=== PATIENT | female | born 1940 | race Two or more races ===

== ENCOUNTER → 2024-05-01 | Outpatient (CLI) | payer OTHER ==
[2024-05-01 09:34] LABS: Urine Bacteria None Seen /hpf (None Seen)
[2024-05-01 10:34] LABS: Urine Blood Negative /uL (Negative); Urine Clarity Clear (Clear); Urine Color Light-Yellow (Yellow); Urine Protein, UAD Negative (Negative); Urine Specific Gravity 1.011 (1.001-1.035); Urine Urobilinogen Normal (Negative); Urine WBC 1 /hpf (0 - 5); Urine pH 7.5 (5.0-9.0)
[2024-05-01 10:45] LABS: Alanine Aminotransferase 22 U/L (7-40); Alkaline Phosphatase 103 U/L (46-116); Anion Gap 6 (5-15); BUN/Creatinine Ratio 14.3 (10.0-20.0); Blood Urea Nitrogen 9 mg/dL (9-23); Calcium 10.2 mg/dL (8.7-10.4); Carbon Dioxide 27 mmol/L (20-30); Chloride 107 mmol/L (98-107); Glucose 103 mg/dL (74-106); Potassium 3.9 mmol/L (3.5-5.1); Sodium 140 mmol/L (136-145)
[2024-05-01 10:47] LABS: Albumin 4.2 g/dL (3.2-4.8); Aspartate Aminotransferase 20 U/L (13-40); Bilirubin, Total 1.6 mg/dL (0.2-1.0); Total Protein 6.9 g/dL (5.7-8.2)
== END | disposition home or self-care (01) ==
LOC: LAB 09:17
PROVIDERS: ATTEND Internal Medicine
DX: I12.9 Hypertensive chronic kidney disease with stage 1 through stage 4 chronic kidney disease, or unspecified chronic kidney disease (principal); N18.2 Chronic kidney disease, stage 2 (mild); E11.59 Type 2 diabetes mellitus with other circulatory complications; E11.22 Type 2 diabetes mellitus with diabetic chronic kidney disease; R82.90 Unspecified abnormal findings in urine; E78.2 Mixed hyperlipidemia
CPT/HCPCS: 36415; 80053; 81001; 86803

== ENCOUNTER 2024-06-25 14:36 | Emergency (ER) | payer OTHER, MEDICARE ==
[~2024-06-25] VITALS: Ht 167.6 cm; Wt 90.0 kg
[2024-06-25 18:26] VITALS: BP 148/68; PULSE 85; RESP 18; TEMP 98.2; O2SAT 95
== END 2024-06-25 18:22 | disposition home or self-care (01) ==
LOC: ER 14:36
DX: S46.912A Strain of unspecified muscle, fascia and tendon at shoulder and upper arm level, left arm, initial encounter (principal); I82.402 Acute embolism and thrombosis of unspecified deep veins of left lower extremity; Z79.82 Long term (current) use of aspirin; W04.XXXA Fall while being carried or supported by other persons, initial encounter; Y93.89 Activity, other specified; Y92.89 Other specified places as the place of occurrence of the external cause; Y99.8 Other external cause status
CPT/HCPCS: 93971

== ENCOUNTER 2024-06-28 11:21 | Inpatient (IN) | payer MEDICARE, OTHER ==
[~2024-06-28] VITALS: Ht 167.6 cm; Wt 89.1 kg
[2024-06-28 13:14] LABS: Basophils # (auto) 0.1 10 ^3/uL (0-0.2); Basophils % (auto) 0.9 % (0.0-2.0); Eosinophils # (auto) 0.3 10 ^3/uL (0-0.8); Eosinophils % (auto) 3.2 % (0.0-7.0); Hematocrit 42.5 % (36.0-46.0); Hemoglobin 14.8 g/dL (12.2-16.2); Lymphocytes # (auto) 1.5 10 ^3/uL (0.4-5.4); Lymphocytes % (auto) 18.4 % (10.0-50.0); Mean Corpuscular Hemoglobin 31.6 pg (28.0-32.0); Mean Corpuscular Hgb Conc. 34.8 g/dL (32.0-36.0); Mean Corpuscular Volume 90.9 fL (80.0-100.0); Monocytes # (auto) 0.6 10 ^3/uL (0-1.3); Monocytes % (auto) 7.7 % (0.0-12.0); Neutrophils # (auto) 5.8 10 ^3/uL (1.6-8.6); Neutrophils % (auto) 69.8 % (37.0-80.0); Platelet Count (auto) 245 10^3/uL (140-450); Red Blood Cells 4.68 10^6/uL (4.0-5.20); White Blood Cell 8.3 10^3/uL (4.4-10.8)
[2024-06-28 13:18] LABS: Chloride 107 mmol/L (98-107); Sodium 139 mmol/L (136-145)
[2024-06-28 13:19] LABS: Anion Gap 9 (5-15); Calcium 9.9 mg/dL (8.7-10.4); Carbon Dioxide 23 mmol/L (20-31)
[2024-06-28 13:24] LABS: BUN/Creatinine Ratio 9.5 (10.0-20.0); Blood Urea Nitrogen 6 mg/dL (9-23); Glucose 121 mg/dL (74-106)
[2024-06-28] MEDS: IOHEXOL 300 MG/ML 100ML BOTTLE IJ ONE (13:58)
[2024-06-28] MEDS: SODIUM CHLORIDE 0.9% 1,000 ML IV ONE (16:59)
[2024-06-28] MEDS: ONDANSETRON HCL 4 MG/2 ML VIAL IV ONE (17:00)
[2024-06-28] MEDS: MORPHINE SULFATE 4 MG/ML SYR/VIAL IV ONE (17:03)
[2024-06-28 17:15] VITALS: PULSE 75; RESP 14; O2SAT 97
[2024-06-28 18:52] LABS: Urine Bacteria FEW /hpf (None Seen); Urine Blood Negative /uL (Negative); Urine Clarity Clear (Clear); Urine Color Light-Yellow (Yellow); Urine Protein, UAD Negative (Negative); Urine Specific Gravity 1.049 (1.001-1.035); Urine Urobilinogen Normal (Negative); Urine WBC 50 /hpf (0 - 5)
[2024-06-28 19:25] VITALS: PULSE 79; RESP 13; O2SAT 95
[2024-06-28] MEDS ORDERED: MORPHINE SULFATE INJ 2 MG/ml SYRG IV PRN ×2 (21:45→22:30)
[2024-06-28] MEDS ORDERED: ONDANSETRON HCL 4 MG/2 ML VIAL IV PRN (21:45)
[2024-06-28] MEDS ORDERED: hydrALAZINE HCL 20 MG/ML VL IV PRN (21:45)
[2024-06-28] MEDS ORDERED: ACETAMINOPHEN 325 MG TAB PO PRN (21:45)
[2024-06-28] MEDS: cefTRIAXone 1GM/50ML D5W 50 ML IV ONE (22:20)
[2024-06-28] MEDS: ASPirin 81 mg TAB PO ONE (22:21)
[2024-06-28] MEDS: ATORVASTATIN 20 MG TAB PO SCH (22:21)
[2024-06-28] MEDS: SODIUM CHLORIDE 0.9% 1,000 ML IV SCH (22:21)
[2024-06-28] MEDS ORDERED: NITROGLYCERIN 0.4 MG SL TAB SL PRN (22:30)
[2024-06-28] MEDS ORDERED: VERA240C2 PO (22:58)
[2024-06-28] MEDS ORDERED: METO-158 PO (22:59)
[2024-06-29] VITALS (7 sets, daily range): BP systolic 115–143; BP diastolic 55–87; PULSE 65–73; RESP 17–18; TEMP 97.6–98.8; O2SAT 94–98
[2024-06-29] MEDS: HYDROcodone-ACET 5/325MG TAB PO PRN (01:30)
[2024-06-29] MEDS ORDERED: ATOR20TA50 PO (02:32)
[2024-06-29] MEDS ORDERED: CHOL20007 PO (02:34)
[2024-06-29 07:52] LABS: Basophils # (auto) 0.1 10 ^3/uL (0-0.2); Basophils % (auto) 0.9 % (0.0-2.0); Eosinophils # (auto) 0.4 10 ^3/uL (0-0.8); Eosinophils % (auto) 5.3 % (0.0-7.0); Hematocrit 41.7 % (36.0-46.0); Hemoglobin 14.3 g/dL (12.2-16.2); Lymphocytes # (auto) 2.1 10 ^3/uL (0.4-5.4); Lymphocytes % (auto) 29.4 % (10.0-50.0); Mean Corpuscular Hemoglobin 31.4 pg (28.0-32.0); Mean Corpuscular Hgb Conc. 34.4 g/dL (32.0-36.0); Mean Corpuscular Volume 91.4 fL (80.0-100.0); Monocytes # (auto) 0.7 10 ^3/uL (0-1.3); Monocytes % (auto) 9.6 % (0.0-12.0); Neutrophils # (auto) 3.9 10 ^3/uL (1.6-8.6); Neutrophils % (auto) 54.8 % (37.0-80.0); Nucleated Red Blood Cells % 0.2 %; Platelet Count (auto) 213 10^3/uL (140-450); Red Blood Cells 4.56 10^6/uL (4.0-5.20); Red Cell Distribution Width 13.2 % (11.8-14.3)
[2024-06-29 08:06] LABS: Alanine Aminotransferase 22 U/L (7-40); Albumin 4.1 g/dL (3.2-4.8); Alkaline Phosphatase 122 U/L (46-116); Aspartate Aminotransferase 23 U/L (13-40); BUN/Creatinine Ratio 8.9 (10.0-20.0); Bilirubin, Total 1.5 mg/dL (0.2-1.0); Blood Urea Nitrogen 5 mg/dL (9-23); Calcium 9.6 mg/dL (8.7-10.4); Glucose 98 mg/dL (74-106); Potassium 3.8 mmol/L (3.5-5.1); Sodium 141 mmol/L (136-145); Total Protein 6.6 g/dL (5.7-8.2)
[2024-06-29 08:11] LABS: Chloride 107 mmol/L (98-107)
[2024-06-29] MEDS: ENOXAPARIN SOD 40 MG/0.4 ML SYRINGE SC SCH (09:31)
[2024-06-29] MEDS: cefTRIAXone 1GM/50ML D5W 50 ML IV SCH (09:32)
[2024-06-29 12:21] LABS: Anion Gap 8 (5-15); Carbon Dioxide 26 mmol/L (20-31)
[2024-06-29] MEDS ORDERED: hydrALAZINE HCL 20 MG/ML VL IV PRN (13:00)
[2024-06-29] MEDS: VERAPAMIL HCL 120 mg ER tab PO ONE (16:05)
[2024-06-29] MEDS: METOPROLOL TARTRATE 50 MG TAB PO SCH (21:30)
[2024-06-30] VITALS (7 sets, daily range): BP systolic 108–133; BP diastolic 47–71; PULSE 61–82; RESP 16–18; TEMP 98–98.9; O2SAT 91–100
[2024-06-30] MEDS: ENOXAPARIN SOD 40 MG/0.4 ML SYRINGE SC SCH (10:22)
[2024-06-30] MEDS: VERAPAMIL HCL 120 mg ER tab PO SCH (10:31)
[2024-07-01] VITALS (8 sets, daily range): BP systolic 116–141; BP diastolic 55–70; PULSE 62–76; RESP 16–20; TEMP 97.6–98.5; O2SAT 93–96
[2024-07-01] MEDS: MAGNESIUM SULFATE 1GM/100ML 100 ML IV ONE ×2 (11:03→13:00)
[2024-07-01 13:59] LABS: Chloride 102 mmol/L (98-107); Potassium 3.6 mmol/L (3.5-5.1); Sodium 138 mmol/L (136-145)
[2024-07-01 14:00] LABS: Anion Gap 7 (5-15); Calcium 9.7 mg/dL (8.7-10.4); Carbon Dioxide 29 mmol/L (20-31)
[2024-07-01 14:05] LABS: Glucose 108 mg/dL (74-106)
[2024-07-01 14:06] LABS: Magnesium 2.1 mg/dL (1.6-2.6)
[2024-07-01 14:09] LABS: BUN/Creatinine Ratio 7.7 (10.0-20.0); Blood Urea Nitrogen < 5 mg/dL (9-23)
[2024-07-02] VITALS (7 sets, daily range): BP systolic 132–152; BP diastolic 65–74; PULSE 61–76; RESP 16–19; TEMP 97.6–98.7; O2SAT 93–96
[2024-07-02] MEDS: VERAPAMIL HCL 120 mg ER tab PO SCH (20:17)
[2024-07-03] VITALS (8 sets, daily range): BP systolic 109–156; BP diastolic 61–74; PULSE 58–76; RESP 15–18; TEMP 98–98.3; O2SAT 93–96
[2024-07-03] MEDS: oxyCODONE HCL 5MG TAB PO ONE (10:21)
[2024-07-03] MEDS: ACETAMINOPHEN 325 MG TAB PO SCH (14:00)
[2024-07-03] MEDS ORDERED: ACETAMINOPHEN 325 MG TAB PO ONE (14:00)
[2024-07-03] MEDS: oxyCODONE HCL 5MG TAB PO SCH (18:23)
[2024-07-03] MEDS: DOCUSATE SOD 100 MG CAP PO PRN (20:30)
[2024-07-04] VITALS (8 sets, daily range): BP systolic 115–147; BP diastolic 60–70; PULSE 62–85; RESP 16–18; TEMP 98.2–98.6; O2SAT 91–98
[2024-07-04] MEDS: SENNA 8.6 MG TAB PO SCH (14:02)
[2024-07-05] VITALS (8 sets, daily range): BP systolic 108–129; BP diastolic 55–66; PULSE 63–77; RESP 16–19; TEMP 97.9–99; O2SAT 92–96
[2024-07-05 06:40] LABS: Basophils # (auto) 0.1 10 ^3/uL (0-0.2); Basophils % (auto) 0.7 % (0.0-2.0); Eosinophils # (auto) 0.3 10 ^3/uL (0-0.8); Eosinophils % (auto) 3.2 % (0.0-7.0); Hematocrit 43.7 % (36.0-46.0); Lymphocytes # (auto) 1.4 10 ^3/uL (0.4-5.4); Lymphocytes % (auto) 17.8 % (10.0-50.0); Mean Corpuscular Hemoglobin 31.4 pg (28.0-32.0); Mean Corpuscular Hgb Conc. 34.3 g/dL (32.0-36.0); Mean Corpuscular Volume 91.6 fL (80.0-100.0); Monocytes % (auto) 12.7 % (0.0-12.0); Neutrophils # (auto) 5.2 10 ^3/uL (1.6-8.6); Neutrophils % (auto) 65.6 % (37.0-80.0); Nucleated Red Blood Cells % 0.1 %; Platelet Count (auto) 255 10^3/uL (140-450); Red Blood Cells 4.78 10^6/uL (4.0-5.20); White Blood Cell 7.9 10^3/uL (4.4-10.8)
[2024-07-05 06:43] LABS: Chloride 105 mmol/L (98-107); Potassium 3.5 mmol/L (3.5-5.1); Sodium 138 mmol/L (136-145)
[2024-07-05 06:44] LABS: Anion Gap 7 (5-15); Calcium 9.9 mg/dL (8.7-10.4); Carbon Dioxide 26 mmol/L (20-31)
[2024-07-05 06:49] LABS: BUN/Creatinine Ratio 10.7 (10.0-20.0); Blood Urea Nitrogen 6 mg/dL (9-23); Glucose 106 mg/dL (74-106)
[2024-07-05] MEDS: ENOXAPARIN SOD 40 MG/0.4 ML SYRINGE SC SCH (09:53)
[2024-07-06] VITALS (8 sets, daily range): BP systolic 113–135; BP diastolic 55–69; PULSE 64–84; RESP 16–18; TEMP 97.8–98.9; O2SAT 93–96
== END 2024-07-06 23:08 | disposition short-term general hospital (02) | DRG 543 ==
LOC: ER 11:29 → TELE-EAST 22:29 → TELE 22:29 → TELE-EAST 23:45
PROVIDERS: ADMIT Student in an Organized Health Care Education/Training Program; ATTEND Student in an Organized Health Care Education/Training Program
DX: M84.522A Pathological fracture in neoplastic disease, left humerus, initial encounter for fracture (principal); C79.51 Secondary malignant neoplasm of bone; N39.0 Urinary tract infection, site not specified; I48.92 Unspecified atrial flutter; C50.912 Malignant neoplasm of unspecified site of left female breast; R07.89 Other chest pain; I10 Essential (primary) hypertension; K59.01 Slow transit constipation; X58.XXXA Exposure to other specified factors, initial encounter; Y93.89 Activity, other specified; Y92.89 Other specified places as the place of occurrence of the external cause; Y99.8 Other external cause status; Z85.3 Personal history of malignant neoplasm of breast; Z90.12 Acquired absence of left breast and nipple; Z80.3 Family history of malignant neoplasm of breast; Z85.41 Personal history of malignant neoplasm of cervix uteri; Z90.710 Acquired absence of both cervix and uterus
CPT/HCPCS: 36415; 71250; 73060; 73201; 73218; 74176; 78306; 80048; 80053; 81001; 83615; 83735; 85025; 85379; 86300; 93005; 96374; 96375; G0378; J2405

== ENCOUNTER → 2024-08-17 | Outpatient (CLI) | payer OTHER ==
[~2024-08-17] MED LIST: ATOR20TA50 PO; CHOL20007 PO; METO-158 PO; VERA240C2 PO
== END | disposition home or self-care (01) ==
LOC: Rad HDHVI 08:58
PROVIDERS: ATTEND Internal Medicine Cardiovascular Disease
DX: I48.91 Unspecified atrial fibrillation (principal)
CPT/HCPCS: 93306

== ENCOUNTER 2024-08-31 08:11 | Emergency (ER) | payer OTHER ==
[~2024-08-31] VITALS: Ht 167.6 cm; Wt 84.0 kg
[2024-08-31 09:16] LABS: Basophils # (auto) 0.1 10 ^3/uL (0-0.2); Basophils % (auto) 0.9 % (0.0-2.0); Eosinophils # (auto) 0.1 10 ^3/uL (0-0.8); Eosinophils % (auto) 1.4 % (0.0-7.0); Hematocrit 42.1 % (36.0-46.0); Hemoglobin 13.9 g/dL (12.2-16.2); Lymphocytes # (auto) 0.6 10 ^3/uL (0.4-5.4); Lymphocytes % (auto) 11.1 % (10.0-50.0); Mean Corpuscular Hemoglobin 30.8 pg (28.0-32.0); Mean Corpuscular Hgb Conc. 33.1 g/dL (32.0-36.0); Monocytes # (auto) 0.4 10 ^3/uL (0-1.3); Monocytes % (auto) 7.1 % (0.0-12.0); Neutrophils # (auto) 4.6 10 ^3/uL (1.6-8.6); Neutrophils % (auto) 79.5 % (37.0-80.0); Nucleated Red Blood Cells % 0.1 %; Platelet Count (auto) 264 10^3/uL (140-450); Red Blood Cells 4.52 10^6/uL (4.0-5.20); Red Cell Distribution Width 13.4 % (11.8-14.3); White Blood Cell 5.8 10^3/uL (4.4-10.8)
[2024-08-31 09:25] LABS: Alanine Aminotransferase 12 U/L (7-40); Albumin 4.4 g/dL (3.2-4.8); Anion Gap 7 (5-15); Aspartate Aminotransferase 23 U/L (13-40); BUN/Creatinine Ratio 10.5 (10.0-20.0); Calcium 10.4 mg/dL (8.7-10.4); Carbon Dioxide 28 mmol/L (20-31); Chloride 106 mmol/L (98-107); Magnesium 1.8 mg/dL (1.6-2.6); Potassium 4.4 mmol/L (3.5-5.1); Sodium 141 mmol/L (136-145)
[2024-08-31 09:26] LABS: Bilirubin, Total 0.9 mg/dL (0.2-1.0); Total Protein 7.2 g/dL (5.7-8.2)
--- NOTE | 2024-08-31 09:27 | ED.PDOC ---
HPI Comments 83 y.o female with PMH of SVT and breast cancer, presents to the ED for a chief complaint of palpitations that started today around 0615. Patient reports she got up to use the restroom when palpitations presented, states trying to wait until they subsided but were consistent for more than an hour. Patient reports similar episodes in the past due to HX of SVT. While patient was transported to a bed, she self converted and is now back to 83 heart rate. Patient denies any chest pain, nausea, vomiting, SOB, fever, chills or recent stressors and/or unusual activities. Chief Complaint: Palpitations Time Seen by MD: 08:54 Primary Care Provider: Dr Fulton Reviewed Notes: Nurses Notes, Medications, Allergies Allergies: Coded Allergies: NO KNOWN ALLERGIES (Unverified , 06/25/24) Home Meds Reported Medications Cholecalciferol (VITAMIN D3) 2,000 Unit Tab, 1 TAB PO DAILY, #30 TAB 5 Refills 06/29/24 Atorvastatin Calcium (ATORVASTATIN CALCIUM) 20 Mg Tab, 1 TAB PO HS, TAB 5 Refills 06/29/24 Metoprolol Tartrate (Metoprolol Tartrate) 50 Mg Tab, 50 MG PO BID for 30 Days, MG 06/28/24 Verapamil Hcl (Verapamil Hcl Er) 240 Mg Cap, 1 CAP PO DAILY, #30 CAP 5 Refills 06/28/24 Information Source: Patient Mode of Arrival: Ambulatory Severity: Moderate Timing: Hours Duration: Since onset Cardiac Risk Factors: None PE Risk Factors: None History of: None Modifying Factors: Nothing Associated Signs and Symptoms: Palpitations Past Medical History PAST MEDICAL HISTORY: Cancer ( breast ) Past Medical History (Other): svt Surgical History: Unknown 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 TEST ENGINEER History: Denies all 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 TEST ENGINEER Hx Family History Family History: Unknown Social History Smoker: Non-Smoker Alcohol: Denies ETOH Use Drugs: Denies Drug Use Lives In: Home Constitutional: denies: chills, diaphoresis, fatigue, fever, malaise, sweats, weakness, others EENTM: denies: blurred vision, double vision, ear bleeding, ear discharge, ear drainage, ear pain, ear ringing, eye pain, eye redness, hearing loss, mouth pain, mouth swelling, nasal discharge, nose bleeding, nose congestion, nose pain, photophobia, tearing, throat pain, throat swelling, voice changes, others Respiratory: denies: cough, hemoptysis, orthopnea, SOB at rest, shortness of breath, SOB with excertion, stridor, wheezing, others Cardiovascular: reports: palpitations; denies: chest pain, dizzy spells, diaphoresis, Dyspnea on exertion, edema, irregular heart beat, left arm pain, lightheadedness, PND, syncope, others Gastrointestinal: denies: abdomen distended, abdominal pain, blood streaked bowels, constipated, diarrhea, dysphagia, difficulty swallowing, hematemesis, melena, nausea, poor appetite, poor fluid intake, rectal bleeding, rectal pain, vomiting, others Genitourinary: denies: abnormal vagina bleeding, burning, dyspareunia, dysuria, flank pain, frequency, hematuria, incontinence, pain, , vagina discharge, urgency, others Neurological: denies: dizziness, fainting, headache, left sided numbness, left sided weakness, numbness, paresthesia, pre-existing deficit, right sided numbness, right sided weakness, seizure, speech problems, tingling, tremors, weakness, others Musculoskeletal: denies: back pain, gout, joint pain, joint swelling, muscle pain, muscle stiffness, neck pain, others Integumetry: denies: bruises, change in color, change in hair/nails, dryness, laceration, lesions, lumps, rash, wounds, others Allergic/Immunocompromised: denies: Difficulty Healing, Frequent Infections, Hives, Itching, others Hematologic/Lymphatic: denies: anemia, blood clots, easy bleeding, easy bruising, swollen glands, others Endocrine: denies: excessive hunger, excessive sweating, excessive thirst, excessive urination, flushing, intolerance to cold, intolerance to heat, unexplained weight gain, unexplained weight loss, others Psychiatric: denies: anxiety, bipolar disorder, depression, hopeless, panic disorder, schizophrenia, sleepless, suicidal, others All Other Systems: Reviewed and Negative Physical Exam General Appearance: No Apparent Distress, Normal HEENT: Normal ENT Inspection, Pharynx Normal, TMs Normal Neck: Full Range of Motion, Non-Tender, Normal, Normal Inspection Respiratory: Chest Non-Tender, Lungs Clear, No Accessory Muscle Use, No Respiratory Distress, Normal Breath Sounds Cardiovascular: No Edema, No JVD, No Murmur, No Gallop, Normal Peripheral Pulses, Regular Rate/Rhythm, Other (normal sinus at 83 at bedside ) Breast Exam: Deferred Gastrointestinal: No Organomegaly, Non Tender, No Pulsatile Mass, Normal Bowel Sounds, Soft Genitalia: Deferred Pelvic: Deferred Rectal: Deferred Extremities: No calf tenderness, Normal capillary refill, Normal inspection, Normal range of motion, Non-tender, No pedal edema Musculoskeletal : Apperance: Normal Neurologic: Alert, group product manager II-XII nml as Tested, No Motor Deficits, Normal Affect, Normal Mood, No Sensory Deficits Cerebellar Function: Normal Reflexes: Normal Skin: Dry, Normal Color, Warm, Other (well healing scar to the left upper humerus ) Lymphatic: No Adenopathy EKG EKG #1: Comments 152 Wide QRS tachycardia EKG #2: Comments at 0917, second EKG taken showin normal sinus rhythm with RBBB Was a procedure done? Was a procedure done?: No CP Differential Dx Differential Diagnosis: A-fib, PSVT X-Ray, Labs, Meds, VS Vital Signs Date Time Temp Pulse Resp B/P (MAP) Pulse Ox O2 Delivery O2 Flow Rate FiO2 08/31/24 12:00 97.8 68 17 120/62 (81) 93 97.8 08/31/24 11:00 65 90/123 (112) 21 08/31/24 09:17 75 08/31/24 09:00 73 14 118/47 (70) 97 08/31/24 08:30 98.0 152 18 125/80 (95) 96 08/31/24 08:20 152 Lab Test 08/31/24 11:51 08/31/24 09:40 08/31/24 08:45 Range/Units Troponin I High Sensitivity Pending 14 11 </=34 ng/L White Blood Count 5.8 4.4-10.8 10^3/uL Red Blood Count 4.52 4.0-5.20 10^6/uL Hemoglobin 13.9 12.2-16.2 g/dL Hematocrit 42.1 36.0-46.0 % Mean Corpuscular Volume 93.0 80.0-100.0 fL Mean Corpuscular Hemoglobin 30.8 28.0-32.0 pg Mean Corpuscular Hemoglobin Concent 33.1 32.0-36.0 g/dL Red Cell Distribution Width 13.4 11.8-14.3 % Platelet Count 264 140-450 10^3/uL Mean Platelet Volume 8.5 6.9-10.8 fL Neutrophils (%) (Auto) 79.5 37.0-80.0 % Lymphocytes (%) (Auto) 11.1 10.0-50.0 % Monocytes (%) (Auto) 7.1 0.0-12.0 % Eosinophils (%) (Auto) 1.4 0.0-7.0 % Basophils (%) (Auto) 0.9 0.0-2.0 % Neutrophils # (Auto) 4.6 1.6-8.6 10 ^3/uL Lymphocytes # (Auto) 0.6 0.4-5.4 10 ^3/uL Monocytes # (Auto) 0.4 0-1.3 10 ^3/uL Eosinophils # (Auto) 0.1 0-0.8 10 ^3/uL Basophils # (Auto) 0.1 0-0.2 10 ^3/uL Nucleated Red Blood Cells 0.1 % Sodium Level 141 136-145 mmol/L Potassium Level 4.4 3.5-5.1 mmol/L Chloride Level 106 98-107 mmol/L Carbon Dioxide Level 28 20-31 mmol/L Anion Gap 7 5-15 Blood Urea Nitrogen 8 L 9-23 mg/dL Creatinine 0.76 0.550-1.02 mg/dL Glomerular Filtration Rate Calc 79 >90 mL/min BUN/Creatinine Ratio 10.5 10.0-20.0 Serum Glucose 177 H 74-106 mg/dL Calcium Level 10.4 8.7-10.4 mg/dL Magnesium Level 1.8 1.6-2.6 mg/dL Total Bilirubin 0.9 0.2-1.0 mg/dL Aspartate Amino Transferase (AST) 23 13-40 U/L Alanine Aminotransferase (ALT) 12 7-40 U/L Alkaline Phosphatase 256 H 46-116 U/L Total Protein 7.2 5.7-8.2 g/dL Albumin 4.4 3.2-4.8 g/dL 83-year-old female presents here and palpitations. She has a history of SVT. Initial EKG demonstrated a wide complex tachycardia which it did appear to be SVT. However upon my evaluation with the patient she had already converted to normal sinus rhythm as soon as she was moved from wheelchair to gurney. This time she is asymptomatic. She does have a history of breast carcinoma and advised her that if she continues to have frequent SVT episodes, to consider PE. Currently issues she has no shortness of breath and saturating well. I do not believe she has PE at this time as she does have a history of SVT in the past. This time I have discharged her home. Blood work is unremarkable with normal magnesium level. Advised to follow up with the PCP in 2-3 days and return to ER if symptoms worsen or persist Time of 1ST Reevaluation: 09:06 Reevaluation 1ST: Unchanged Time of 2ND Reevaluation: 12:13 Reevaluation 2ND: Improved Patient Education/Counseling: Diagnosis, Treatment, Prognosis Family Education/Counseling: No Family Present Departure 1 Departure Time of Disposition: 10:08 Impression: Primary Impression: SVT (supraventricular tachycardia) Disposition: 01 HOME / SELF CARE / HOMELESS Condition: Stable Additional Instructions: Follow up with the primary care physician in 2-3 days. If you continue have recurrent episodes of SVT please return back to the ER. Discharged With: Spouse Critical Care Note Critical Care Time?: No Stability Stability form required: No I personally scribed for VÍCTOR ORTIZ MD ([email or web address]) on 08/31/24 at 09:27. Electronically submitted by Apple Kaufman ([facility]). VÍCTOR ORTIZ MD Aug 31, 2024 09:27
[2024-08-31 09:38] LABS: Alkaline Phosphatase 256 U/L (46-116); Blood Urea Nitrogen 8 mg/dL (9-23); Glucose 177 mg/dL (74-106)
[2024-08-31 12:00] VITALS: BP 120/62; TEMP 97.8
[2024-08-31 12:25] VITALS: PULSE 64; RESP 17; O2SAT 99
--- NOTE | 2024-09-03 05:46 | ECG ---
[facility] Test Date: 2024-08-31 Test Time: 08:18:49 Pat Name: ARNAV VIRGEN Department: ER Room: Gender: F Intern Product Marketing Manager: MARIBEL : 1940 Requested By: VÍCTOR ORTIZ Order Number: [id number] Reading MD: Shiva Aguilera Measurements Intervals [place] Rate: 152 P: 0 NE: 110 QRS: -76 QRSD: 129 T: 30 QT: 313 QTc: 498 Interpretive Statements Wide-QRS tachycardia RBBB and LAFB Electronically Signed On 09-06-2024 14:51:11 PST by Shiva Aguilera Please click the below link to view image of tracing.
--- NOTE | 2024-09-03 09:00 | ECG ---
[facility] Test Date: 2024-08-31 Test Time: 09:17:08 Pat Name: ARNAV VIRGEN Department: er Room: Gender: F Extract Operator: courtney : 1940 Requested By: VÍCTOR ORTIZ Order Number: [id number] Reading MD: Shiva Aguilera Measurements Intervals [place] Rate: 75 P: -84 NM: 130 QRS: -44 QRSD: 137 T: 12 QT: 407 QTc: 455 Interpretive Statements Sinus or ectopic atrial rhythm RBBB and LAFB Electronically Signed On 09-06-2024 14:51:19 PST by Shiva Aguilera Please click the below link to view image of tracing.
== END 2024-08-31 12:42 | disposition home or self-care (01) ==
LOC: ER 08:11
DX: I47.10 Supraventricular tachycardia, unspecified (principal); Z79.899 Other long term (current) drug therapy
CPT/HCPCS: 36415; 80053; 83735; 84484; 85025; 93005

== ENCOUNTER → 2024-09-04 | Outpatient (CLI) | payer OTHER ==
[~2024-09-04] VITALS: Ht 167.6 cm; Wt 83.9 kg
== END | disposition home or self-care (01) ==
LOC: Rad HDHVI 09:25
PROVIDERS: ATTEND Internal Medicine Cardiovascular Disease
DX: I10 Essential (primary) hypertension (principal); I48.91 Unspecified atrial fibrillation; I45.2 Bifascicular block; E78.00 Pure hypercholesterolemia, unspecified; C50.911 Malignant neoplasm of unspecified site of right female breast; Z79.899 Other long term (current) drug therapy
CPT/HCPCS: 78472; 96374; 96375; A9505

== ENCOUNTER 2024-09-22 07:08 | Inpatient (IN) | payer OTHER ==
[~2024-09-22] VITALS: Ht 167.6 cm; Wt 83.0 kg
--- NOTE | 2024-09-22 07:25 | ECG ---
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
--- NOTE | 2024-09-22 07:29 | ED.PDOC ---
HPI Comments 83 year old female presents to the ED with chief complaint of palpitations. Patient reports that she has been experiencing heart palpitations since 10:30pm last night, went to sleep, but still felt palpitations when waking up this morning. Patient relays that she has no history of NM, however, review of her chart notes history of SVT on 08/31/24 with palpitations being her chief complaint. Patient denies any chest pain, SOB, dizziness, headache, N/V, or numbness. Chief Complaint: Palpitations Time Seen by MD: 07:24 Primary Care Provider: Dr Fulton Reviewed Notes: Nurses Notes, Medications, Allergies Allergies: Coded Allergies: NO KNOWN ALLERGIES (Unverified , 06/25/24) Home Meds Reported Medications Apixaban Base (ELIQUIS) 5 Mg Tab, 1 TAB PO BID 09/22/24 Cholecalciferol (VITAMIN D3) 2,000 Unit Tab, 1 TAB PO DAILY, #30 TAB 5 Refills 06/29/24 Atorvastatin Calcium (ATORVASTATIN CALCIUM) 20 Mg Tab, 1 TAB PO HS, TAB 5 Refills 06/29/24 Metoprolol Tartrate (Metoprolol Tartrate) 50 Mg Tab, 50 MG PO BID for 30 Days, MG 06/28/24 Verapamil Hcl (Verapamil Hcl Er) 240 Mg Cap, 1 CAP PO DAILY, #30 CAP 5 Refills 06/28/24 Information Source: Patient Mode of Arrival: Ambulatory Severity: Moderate Timing: Hours Duration: Since onset Prehospital treatment: None Onset: At Rest Cardiac Risk Factors: None PE Risk Factors: None History of: Similar pain in past, Other (SVT) Associated Signs and Symptoms: Palpitations Past Medical History PAST MEDICAL HISTORY: Cancer Past Medical History (Other): SVT Surgical History (Other): Left arm surgery 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 History: Denies all 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 Hx Family History Family History: Reviewed,noncontributory to illness Social History Smoker: Non-Smoker Alcohol: Denies ETOH Use Drugs: Denies Drug Use Lives In: Home Constitutional: denies: chills, diaphoresis, fatigue, fever, malaise, sweats, weakness, others EENTM: denies: blurred vision, double vision, ear bleeding, ear discharge, ear drainage, ear pain, ear ringing, eye pain, eye redness, hearing loss, mouth pain, mouth swelling, nasal discharge, nose bleeding, nose congestion, nose pain, photophobia, tearing, throat pain, throat swelling, voice changes, others Respiratory: denies: cough, hemoptysis, orthopnea, SOB at rest, shortness of breath, SOB with excertion, stridor, wheezing, others Cardiovascular: reports: palpitations; denies: chest pain, dizzy spells, diap horesis, Dyspnea on exertion, edema, irregular heart beat, left arm pain, lightheadedness, PND, syncope, others Gastrointestinal: denies: abdomen distended, abdominal pain, blood streaked bowels, constipated, diarrhea, dysphagia, difficulty swallowing, hematemesis, melena, nausea, poor appetite, poor fluid intake, rectal bleeding, rectal pain, vomiting, others Genitourinary: denies: abnormal vagina bleeding, burning, dyspareunia, dysuria, flank pain, frequency, hematuria, incontinence, pain, , vagina discharge, urgency, others Neurological: denies: dizziness, fainting, headache, left sided numbness, left sided weakness, numbness, paresthesia, pre-existing deficit, right sided numbness, right sided weakness, seizure, speech problems, tingling, tremors, weakness, others Musculoskeletal: denies: back pain, gout, joint pain, joint swelling, muscle pain, muscle stiffness, neck pain, others Integumetry: denies: bruises, change in color, change in hair/nails, dryness, laceration, lesions, lumps, rash, wounds, others Allergic/Immunocompromised: denies: Difficulty Healing, Frequent Infections, Hives, Itching, others Hematologic/Lymphatic: denies: anemia, blood clots, easy bleeding, easy bruising, swollen glands, others Endocrine: denies: excessive hunger, excessive sweating, excessive thirst, excessive urination, flushing, intolerance to cold, intolerance to heat, unexplained weight gain, unexplained weight loss, others Psychiatric: denies: anxiety, bipolar disorder, depression, hopeless, panic disorder, schizophrenia, sleepless, suicidal, others All Other Systems: Reviewed and Negative Physical Exam General Appearance: Moderate Distress, Normal HEENT: Normal ENT Inspection, PERRL/EOMI Neck: Full Range of Motion, Non-Tender, Normal, Normal Inspection Respiratory: Chest Non-Tender, Lungs Clear, No Accessory Muscle Use, No Resp iratory Distress, Normal Breath Sounds Cardiovascular: No Edema, No JVD, No Murmur, No Gallop, Normal Peripheral Pulses, Tachycardia Breast Exam: Deferred Gastrointestinal: No Organomegaly, Non Tender, No Pulsatile Mass, Normal Bowel Sounds, Soft Genitalia: Deferred Pelvic: Deferred Rectal: Deferred Extremities: No calf tenderness, Normal capillary refill, Normal inspection, Normal range of motion, Non-tender, No pedal edema Musculoskeletal : Apperance: Normal Neurologic: Alert, maintenance helper II-XII nml as Tested, No Motor Deficits, Normal Affect, Normal Mood, No Sensory Deficits Cerebellar Function: NOT DONE Reflexes: NOT DONE Skin: Dry, Normal Color, Warm Peripheral Pulses: 3+ Radial (R), 3+ Radial (L) Lymphatic: No Adenopathy EKG EKG : Pulse Rate (adult): 164 [place]: Normal Cardiac Rhythm: ST Block: None Hypertrophy: None ST: Normal Was a procedure done? Was a procedure done?: No CP Differential Dx Differential Diagnosis: A-fib, A-Flutter, Angina, Anxiety / Panic Attack, Atrial Dysrhythmia, Electrolyte Disorder X-Ray, Labs, Meds, VS Vital Signs Date Time Temp Pulse Resp B/P (MAP) Pulse Ox O2 Delivery O2 Flow Rate FiO2 09/22/24 09:30 156 16 122/77 (92) 95 09/22/24 09:30 123/77 09/22/24 09:00 162 16 112/76 (88) 95 09/22/24 08:30 167 27 108/67 (81) 95 09/22/24 08:19 169 09/22/24 08:04 170 20 126/101 (109) 95 09/22/24 07:48 163 15 94 Room Air* 0 21 09/22/24 07:48 98.1 163 15 123/77 (92) 94 98.1 09/22/24 07:36 98.5 166 18 125/71 (89) 94 09/22/24 07:29 164 09/22/24 07:22 164 Lab Test 09/22/24 08:33 09/22/24 07:42 Range/Units Troponin I High Sensitivity 28 28 </=34 ng/L White Blood Count 7.0 4.4-10.8 10^3/uL Red Blood Count 4.82 4.0-5.20 10^6/uL Hemoglobin 14.8 12.2-16.2 g/dL Hematocrit 43.9 36.0-46.0 % Mean Corpuscular Volume 91.0 80.0-100.0 fL Mean Corpuscular Hemoglobin 30.6 28.0-32.0 pg Mean Corpuscular Hemoglobin Concent 33.6 32.0-36.0 g/dL Red Cell Distribution Width 13.2 11.8-14.3 % Platelet Count 295 140-450 10^3/uL Mean Platelet Volume 8.3 6.9-10.8 fL Neutrophils (%) (Auto) 66.4 37.0-80.0 % Lymphocytes (%) (Auto) 20.3 10.0-50.0 % Monocytes (%) (Auto) 10.0 0.0-12.0 % Eosinophils (%) (Auto) 2.2 0.0-7.0 % Basophils (%) (Auto) 1.1 0.0-2.0 % Neutrophils # (Auto) 4.6 1.6-8.6 10 ^3/uL Lymphocytes # (Auto) 1.4 0.4-5.4 10 ^3/uL Monocytes # (Auto) 0.7 0-1.3 10 ^3/uL Eosinophils # (Auto) 0.2 0-0.8 10 ^3/uL Basophils # (Auto) 0.1 0-0.2 10 ^3/uL Nucleated Red Blood Cells 0.0 % Sodium Level 141 136-145 mmol/L Potassium Level 4.3 3.5-5.1 mmol/L Chloride Level 105 98-107 mmol/L Carbon Dioxide Level 27 20-31 mmol/L Anion Gap 9 5-15 Blood Urea Nitrogen 12 9-23 mg/dL Creatinine 0.84 0.550-1.02 mg/dL Glomerular Filtration Rate Calc 70 >90 mL/min BUN/Creatinine Ratio 14.3 10.0-20.0 Serum Glucose 136 H 74-106 mg/dL Calcium Level 10.7 H 8.7-10.4 mg/dL Total Bilirubin 1.1 H 0.2-1.0 mg/dL Aspartate Amino Transferase (AST) 30 13-40 U/L Alanine Aminotransferase (ALT) 11 7-40 U/L Alkaline Phosphatase 272 H 46-116 U/L Total Protein 7.5 5.7-8.2 g/dL Albumin 4.5 3.2-4.8 g/dL Current Medications Medications (Trade) Dose Ordered Sig/Hugh Route Start Time Stop Time Status Last Admin Adenosine (Adenosine) 6 mg ONCE ONCE IV 09/22/24 08:45 09/22/24 08:46 DC 09/22/24 08:43 Diltiazem HCl 125 ml @ 5 mls/hr Q24H ONCE IV 09/22/24 09:15 09/23/24 09:14 09/22/24 09:30 Diltiazem HCl (Cardizem Injection) 20 mg ONCE ONCE IV 09/22/24 09:15 09/22/24 09:16 DC 09/22/24 09:29 Patient alert. Complaining of palpitations. Heart rate increased. Was given adenosine with response. Heart rate normalized for less than a minute. Had to place her on Cardizem. Reviewed her previous visit. She does have a history of supraventricular tachycardia. WBC within normal limits. Hemoglobin within normal limits. Explained to the patient. Continue cardiac monitoring. Time of 1ST Reevaluation: 08:24 Reevaluation 1ST: Unchanged Patient Education/Counseling: Diagnosis, Treatment, Prognosis Family Education/Counseling: No Family Present Additional Information I reviewed the following notes from patient's past medical encounters: 08/31/24 for SVT and palpitations The following tests were ordered, and results were reviewed by me: EKG, Troponin, CBC, CMP I reviewed and agreed with the following test results read by other providers: (X-Ray, CT, US) I discussed treatment and results with medical personnel. Departure 1 Departure Time of Disposition: 09:15 Impression: Primary Impression: SVT (supraventricular tachycardia) Disposition: ADMITTED INPATIENT Admit to: Med Surg Condition: Guarded Critical Care Note Critical Care Time?: Yes (45 min-critical care time only) Stability Stability form required: No Heart Score Heart Score: Heart Score Response (Comments) Value History Moderate Suspicious 1 EKG Normal 0 Age >65 2 Risk Factors 1 or 2 risk factors 1 Troponin Normal limit 0 Total 4 I personally scribed for BREANNA CHESTER MD ([email or web address]) on 09/22/24 at 07:29. Electronically submitted by Rebel Palafox ([email or web address]). I personally scribed for BREANNA CHESTER MD ([email or web address]) on 09/22/24 at 17:24. Electronically submitted by Earnestine Jung [email or web address]). BREANNA CHESTER MD Sep 22, 2024 07:29
[2024-09-22 07:48] VITALS: PULSE 163; RESP 15; O2SAT 94
[2024-09-22 08:04] LABS: Basophils # (auto) 0.1 10 ^3/uL (0-0.2); Basophils % (auto) 1.1 % (0.0-2.0); Eosinophils # (auto) 0.2 10 ^3/uL (0-0.8); Eosinophils % (auto) 2.2 % (0.0-7.0); Hematocrit 43.9 % (36.0-46.0); Hemoglobin 14.8 g/dL (12.2-16.2); Lymphocytes # (auto) 1.4 10 ^3/uL (0.4-5.4); Lymphocytes % (auto) 20.3 % (10.0-50.0); Mean Corpuscular Hemoglobin 30.6 pg (28.0-32.0); Mean Corpuscular Hgb Conc. 33.6 g/dL (32.0-36.0); Monocytes # (auto) 0.7 10 ^3/uL (0-1.3); Neutrophils # (auto) 4.6 10 ^3/uL (1.6-8.6); Neutrophils % (auto) 66.4 % (37.0-80.0); Platelet Count (auto) 295 10^3/uL (140-450); Red Blood Cells 4.82 10^6/uL (4.0-5.20); Red Cell Distribution Width 13.2 % (11.8-14.3)
[2024-09-22 08:25] LABS: Alanine Aminotransferase 11 U/L (7-40); Albumin 4.5 g/dL (3.2-4.8); Anion Gap 9 (5-15); Aspartate Aminotransferase 30 U/L (13-40); BUN/Creatinine Ratio 14.3 (10.0-20.0); Blood Urea Nitrogen 12 mg/dL (9-23); Carbon Dioxide 27 mmol/L (20-31); Chloride 105 mmol/L (98-107); Potassium 4.3 mmol/L (3.5-5.1); Sodium 141 mmol/L (136-145)
[2024-09-22 08:26] LABS: Bilirubin, Total 1.1 mg/dL (0.2-1.0); Total Protein 7.5 g/dL (5.7-8.2)
[2024-09-22] MEDS: ADENOSINE 6 MG/2 ML INJ IV ONE (08:43)
[2024-09-22 09:16] LABS: Alkaline Phosphatase 272 U/L (46-116); Calcium 10.7 mg/dL (8.7-10.4); Glucose 136 mg/dL (74-106)
[2024-09-22] MEDS: dilTIAZem 25 MG/5 ML VIAL IV ONE (09:29)
[2024-09-22] MEDS: dilTIAZem 125mg/125ml BAG KIT 125 ML IV ONE (09:30)
--- NOTE | 2024-09-22 09:44 | DVH ---
CHEST RADIOGRAPH Indication: Palpitations Technique: Single frontal view of the chest was obtained Comparison: None FINDINGS: Lines and Tubes: None Lungs: No focal consolidation. Pleura: No effusion. No pneumothorax. Cardiomediastinal contours: Unremarkable Bones: No acute osseous abnormality. ORIF humerus. IMPRESSION: 1. No acute cardiopulmonary disease.
[2024-09-22] MEDS ORDERED: ONDANSETRON HCL 4 MG/2 ML VIAL IV PRN (09:45)
[2024-09-22] MEDS ORDERED: MORPHINE SULFATE INJ 2 MG/ml SYRG IV PRN (09:45)
[2024-09-22] MEDS ORDERED: MORPHINE SULFATE 4 MG/ML SYR/VIAL IV PRN (09:45)
[2024-09-22] MEDS ORDERED: NITROGLYCERIN 0.4 MG SL TAB SL PRN ×2 (09:45)
[2024-09-22] MEDS ORDERED: APIX5TAB PO (10:07)
--- NOTE | 2024-09-22 10:15 | DVHHP2 ---
History of Present Illness Reason for Visit: palpitations History of Present Illness Shaniqua Charles is a 83-year-old female with past medical history of AFib, breast cancer going through radiation been through so far and pending plans for chemo, left mastectomy, and left node removal greater than 18 years ago who presents to the ED today for palpitations since 10:30 p.m. last night. Patient states that there are no triggering or alleviating factors. She states that around 1030pm she was having palpitations then went to bed and slept through it but this morning she felt the palpitations again. She denies any fevers, chills, chest pain, shortness of breath, recent sick contacts, nausea, vomiting, diarrhea, lightheadedness, headaches, and dizziness. Patient reports that she sees Dr. Parker her oncologist. Cardiovascular: AFIB Past Medical History Breast cancer Past Surgical History: Mastectomy Past Surgical History Left lymph node removal greater than 18 years ago Family History: Cancer Family History Mom's side history of breast cancer and cousins as well various types Smoke: No ALCOHOL: none Drugs: None Lives: with Family Domestic Violence: Neg Review of Systems Constitutional: No: Fever, Chills, Sweats, Weakness, Malaise, Other Eyes: No: Pain, Vision change, Conjunctivae inflammation, Eyelid inflammation, Other, Redness ENT: No: Ear pain, Ear discharge, Nose pain, Nose discharge, Nose congestion, Mouth pain, Mouth swelling, Throat pain, Throat swelling, Other Respiratory: No: Cough, Dry, Shortness of breath, SOB with excertion, Wheezing, Hemoptysis, Pleuritic Pain, Sputum, Wheezing, Other Cardiovascular: Palpitations; No: Chest Pain, Orthopnea, Paroxysmal Noc. Dyspnea, Edema, Lt Headedness, Other Gastrointestinal: No: Nausea, Vomiting, Abdominal Pain, Diarrhea, Constipation, Melena, Hematochezia, Other Genitourinary: No Dysuria, No Frequency, No Incontinence, No Hematuria, No Retention, No Other Musculoskeletal: No: other, neck pain, shoulder pain, arm pain, back pain, hand pain, leg pain, foot pain Skin: No: Rash, Lesions, Jaundice, Bruising, Other Neurological: No: Weakness, Numbness, Incoordination, Change in speech, Confusion, Seizures, Other Allergies: Coded Allergies: NO KNOWN ALLERGIES (Unverified , 06/25/24) Exam Vital Signs Vital Signs Date Time Temp Pulse Resp B/P (MAP) Pulse Ox O2 Delivery O2 Flow Rate FiO2 09/22/24 09:30 123/77 09/22/24 08:19 169 09/22/24 07:48 15 94 Room Air* 0 21 09/22/24 07:48 98.1 98.1 General Appearance: Alert, Oriented X3, Cooperative, No acute distress HEENT: Atraumatic, PERRLA, EOMI, Mucous membr. moist/pink Respiratory: Clear to auscultation, Normal air movement Cardiovascular: Normal S1, Normal S2, No murmurs Abdominal: Normal bowel sounds, Soft, No tenderness, No hepatospenomegaly, No masses Extremities: No clubbing, No cyanosis, No edema, Normal pulses, No tenderness/swelling Skin: No rashes, No breakdown, No significant lesion Neuro: Normal gait, Normal speech, Strength at 5/5 X4 ext, Normal tone, Sensation intact Psych/Mental Status: Mental status NL, Mood NL Labs/Xrays Labs Test 09/22/24 08:33 09/22/24 07:42 Range/Units Troponin I High Sensitivity 28 </=34 ng/L White Blood Count 7.0 4.4-10.8 10^3/uL Red Blood Count 4.82 4.0-5.20 10^6/uL Hemoglobin 14.8 12.2-16.2 g/dL Hematocrit 43.9 36.0-46.0 % Mean Corpuscular Volume 91.0 80.0-100.0 fL Mean Corpuscular Hemoglobin 30.6 28.0-32.0 pg Mean Corpuscular Hemoglobin Concent 33.6 32.0-36.0 g/dL Red Cell Distribution Width 13.2 11.8-14.3 % Platelet Count 295 140-450 10^3/uL Mean Platelet Volume 8.3 6.9-10.8 fL Neutrophils (%) (Auto) 66.4 37.0-80.0 % Lymphocytes (%) (Auto) 20.3 10.0-50.0 % Monocytes (%) (Auto) 10.0 0.0-12.0 % Eosinophils (%) (Auto) 2.2 0.0-7.0 % Basophils (%) (Auto) 1.1 0.0-2.0 % Neutrophils # (Auto) 4.6 1.6-8.6 10 ^3/uL Lymphocytes # (Auto) 1.4 0.4-5.4 10 ^3/uL Monocytes # (Auto) 0.7 0-1.3 10 ^3/uL Eosinophils # (Auto) 0.2 0-0.8 10 ^3/uL Basophils # (Auto) 0.1 0-0.2 10 ^3/uL Nucleated Red Blood Cells 0.0 % Sodium Level 141 136-145 mmol/L Potassium Level 4.3 3.5-5.1 mmol/L Chloride Level 105 98-107 mmol/L Carbon Dioxide Level 27 20-31 mmol/L Anion Gap 9 5-15 Blood Urea Nitrogen 12 9-23 mg/dL Creatinine 0.84 0.550-1.02 mg/dL Glomerular Filtration Rate Calc 70 >90 mL/min BUN/Creatinine Ratio 14.3 10.0-20.0 Serum Glucose 136 H 74-106 mg/dL Calcium Level 10.7 H 8.7-10.4 mg/dL Total Bilirubin 1.1 H 0.2-1.0 mg/dL Aspartate Amino Transferase (AST) 30 13-40 U/L Alanine Aminotransferase (ALT) 11 7-40 U/L Alkaline Phosphatase 272 H 46-116 U/L Total Protein 7.5 5.7-8.2 g/dL Albumin 4.5 3.2-4.8 g/dL Assessment/Plan Assessment/Plan Assessment/Plan: Palpitations Cardiac consult Adenosine Cardizem drip UA EKG noted Troponins negative x2 ACS protocol Aspirin Statins Echo Echo done on August 17, 2024 EF greater than 55% TSH Lipid panel UDS EKG a.m. A.m. labs cxr AFib Continue home meds History of breast cancer Outpatient follow-up FEN/PPX NPO IVf DVT ppx - not indicated patient ambulating PUD prophylaxis not indicated patient know history of GI bleed or GERD Discussed plan of care with patient and nurse Home medications reconciled Admit to [facility] Plan discussed with: Patient My Orders Orders - LIANG CHEN SEX CRIMES DETECTIVE Procedure Category Date Status Time Chest Xray 1 View XY 09/22/24 Resulted 09:20 * Cardiology Consult CONS 09/22/24 Transmitted 09:40 Admit ADMIT 09/22/24 Verified 09:41 Code Status CODE 09/22/24 Verified 09:41 Vital Signs KIRSTY 09/22/24 Verified 09:41 Car Customizer BANNER 09/22/24 Verified 09:41 0.9%Ns 1000 Ml PHA 09/22/24 Verified 09:45 Aspirin Tablet PHA 09/22/24 Verified 10:00 Lipitor 40mg Hs PHA 09/22/24 Verified Hi-Intensity 22:00 Morphine Sulfate PHA 09/22/24 Verified Injection 09:45 Acetaminophen Tablet PHA 09/22/24 Verified (Tylenol Tablet) 09:45 Complete Blood Count LAB 09/23/24 Verified 04:00 Comprehensive LAB 09/23/24 Verified Metabolic Panel 04:00 Echo 2d Mode Cardiac US 09/22/24 Verified DOP 09:41 Nitroglycerin PHA 09/22/24 Verified Sublingual (Ntrostat 09:45 Ondansetron Hcl PHA 09/22/24 Verified (Zofran) 09:45 Electrocardigram EKG 09/23/24 Verified 04:00 Troponin-I Hs LAB 09/22/24 Verified 09:41 Cardiac KIRSTY 09/22/24 Verified Rehabilitation - Outpa Nitroglycerin PHA 09/22/24 Verified Sublingual (Ntrostat 09:45 Morphine Sulfate PHA 09/22/24 Verified Injection 09:45 Stat Ekg For Chest BANNER 09/22/24 Verified Pain 09:41 Notify Md Of Changes BANNER 09/22/24 Verified From Base 09:41 Residential Assistant For BANNER 09/22/24 Verified 24 Hours 09:41 Emergency Dysrhythmia BANNER 09/22/24 Verified Protocol 09:41 Rhythm Strips Once BANNER 09/22/24 Verified Every Shift 09:41 Oxygen By Nasal RT 09/22/24 Verified Cannula 09:41 Date of Service: Sep 22, 2024 Billing Provider: LIANG CHEN Common Visit Codes: [id number] INP/OBS CARE (HIGH) LIANG CHEN Sep 22, 2024 10:15
[2024-09-22] MEDS: SODIUM CHLORIDE 0.9% 1,000 ML IV SCH (11:30)
[2024-09-22] MEDS: ASPirin 81 mg TAB PO SCH (11:33)
[2024-09-22] MEDS: CHOLECALCIFEROL (VITD3) 1,000UNIT=25mCg TAB PO SCH (12:28)
[2024-09-22 13:51] LABS: Urine Bacteria None Seen /hpf (None Seen)
[2024-09-22 14:19] LABS: Amphetamine Screen, Urine Neg (NEGATIVE); Barbiturate Scree,Urine Neg (NEGATIVE); Benzodiazephine Screen, Urine Neg (NEGATIVE); Cannabinoid Screen, Urine Neg (NEGATIVE); Cocaine Screen, Urine Neg (NEGATIVE); Opiate Scree,Urine Neg (NEGATIVE); Phencyclidine Screen, Urine Neg (NEGATIVE)
[2024-09-22 14:31] LABS: Urine Blood Negative /uL (Negative); Urine Clarity Clear (Clear); Urine Color Light-Yellow (Yellow); Urine Protein, UAD TRACE (Negative); Urine Squamous Epithelial Cell FEW /hpf (<5); Urine Urobilinogen Normal (Negative); Urine WBC 5 /hpf (0 - 5)
--- NOTE | 2024-09-22 16:47 | DVHINCON2 ---
Date Seen: Sep 22, 2024 Referring Physician CARLA Olson Reason for Consultation Palpitations History of Present Illness This is a 83-year-old female patient who presents to the emergency room with chief complaint of palpitations. The patient reports that the palpitations began at approximately 10:30 p.m. last night. She reports numerous similar events, but came to the emergency room since her palpitations would not subside. Upon emergency room arrival, a twelve lead electrocardiogram was performed and shows a wide complex tachycardia, likely supraventricular tachycardia with rate in 160s. Patient was given adenosine 6 mg IV one time followed by diltiazem 20 mg IV one time. The patient then converted into a normal sinus rhythm. The patient is on a Cardizem drip at time of assessment. Significant past medical history includes supraventricular tachycardia, atrial fibrillation (on metoprolol and Eliquis), hyperlipidemia, and breast cancer now with metastatic disease. Patient reports that she is currently awaiting a Port-A-Cath implantation to undergo chemotherapy. She reports that her oncologist has asked her to stay off of her Eliquis therapy prior to Port-A-Cath insertion. Past Medical History Past medical history reviewed. No other significant than mentioned above. Past Surgical History Left mastectomy Face lift Cataract removal Right knee arthroplasty Hernia repair Family History: FH: breast cancer G8 MOTHER, FH: heart attack G8 FATHER, Family History Family history reviewed. Social History Patient has a 45 pack-year history, quit smoking approximately 26 years ago Patient denies any illicit drug use Patient denies any alcohol use Allergies: Coded Allergies: NO KNOWN ALLERGIES (Unverified , 06/25/24) Home Meds Reported Medications Apixaban Base (ELIQUIS) 5 Mg Tab, 1 TAB PO BID 09/22/24 Cholecalciferol (VITAMIN D3) 2,000 Unit Tab, 1 TAB PO DAILY, #30 TAB 5 Refills 06/29/24 Atorvastatin Calcium (ATORVASTATIN CALCIUM) 20 Mg Tab, 1 TAB PO HS, TAB 5 Refills 06/29/24 Metoprolol Tartrate (Metoprolol Tartrate) 50 Mg Tab, 50 MG PO BID for 30 Days, MG 06/28/24 Verapamil Hcl (Verapamil Hcl Er) 240 Mg Cap, 1 CAP PO DAILY, #30 CAP 5 Refills 06/28/24 Home Meds Home medications reviewed. Current Medications Current Medications Medications (Trade) Dose Ordered Sig/Hugh Route PRN Reason Start Time Stop Time Status Last Admin Sodium Chloride 1,000 ml @ 75 mls/hr [id number] IV 09/22/24 09:45 09/22/24 11:30 Aspirin 81 mg DAILY PO 09/22/24 10:00 09/22/24 11:33 Atorvastatin Calcium (Lipitor) 40 mg HS PO 09/22/24 22:00 09/22/24 11:11 DC Morphine Sulfate 2 mg Q30MP PRN IV FOR CHEST PAIN 09/22/24 09:45 09/22/24 11:11 DC Acetaminophen (Tylenol Tablet) 650 mg Q6HP PRN PO MILD PAIN (1-3 PAIN SCALE) 09/22/24 09:45 Nitroglycerin (Ntrostat Sublingual) 0.4 mg Q5MINP PRN SL FOR CHEST PAIN 09/22/24 09:45 09/22/24 11:12 DC Ondansetron HCl (Zofran) 4 mg Q4HP PRN IV NAUSEA / VOMITING 09/22/24 09:45 Nitroglycerin (Ntrostat Sublingual) 0.4 mg Q5MINP PRN SL FOR CHEST PAIN 09/22/24 09:45 Morphine Sulfate 2 mg Q30M PRN IV FOR CHEST PAIN 09/22/24 09:45 Atorvastatin Calcium (Lipitor) 20 mg HS PO 09/22/24 22:00 Cholecalciferol (Vitamin D3 Tablet) 2,000 unit DAILY PO 09/22/24 12:00 09/22/24 12:28 Review of Systems Constitutional: No symptom reported Ears, Nose, & Throat: No symptom reported Eyes: No symptom reported Neurological: No symptoms reported Pulmonary/Respiratory: No symptoms reported Cardiovascular: Palpitations Gastrointestinal: No symptom reported Genitourinary: No symptom reported Musculoskeletal: No symptom reported Skin: No symptom reported Psychiatric: No symptom reported Endocrine: No symptom reported Hematologic/Lymphatic: No symptom reported Vital Signs Vital Signs Date Time Temp Pulse Resp B/P (MAP) Pulse Ox O2 Delivery O2 Flow Rate FiO2 09/22/24 14:00 79 23 136/60 (85) 94 09/22/24 11:15 98.2 98.2 09/22/24 07:48 Room Air* 0 21 Physical Exam General Appearance: Cooperative. Well-developed. Well-nourished. No acute distress. Pulmonary/Respiratory: Clear, bilateral breaths sounds. Cardiovascular/Chest: Regular rate and rhythm. Peripheral Pulses: 2+ Radial (R). 2+ Radial (L). 2+ Pedal (R). 2+ Pedal (L) Abdominal Exam: Normal bowel sounds. Ankle Exam: Negative ankle edema Lower extremities: Negative lower extremity edema Neuro/Mental Status: A/OX4, coherent. Thoughts/Psych: Normal thought pattern. Appropriate mood and affect. Good judgment and insight. Appearance: No acute distress. Skin Exam: Normal inspection. Normal color. Warm and dry. Labs/Diagnostic Data Labs Test 09/22/24 13:50 09/22/24 13:13 09/22/24 10:20 09/22/24 07:42 Range/Units Urine Color Light-yellow Yellow Urine Clarity Clear Clear Urine pH 6.0 5.0-9.0 Urine Specific [place] 1.020 1.001-1.035 Urine Protein Trace H Negative Urine Ketones 1+ H Negative Urine Blood Negative Negative /uL Urine Nitrite Negative Negative Urine Bilirubin Negative Negative Urine Urobilinogen Normal Negative mg/dL Urine Leukocyte Esterase Trace Negative /uL Urine RBC 4 0 - 4 /hpf Urine WBC 5 0 - 5 /hpf Urine Squamous Epithelial Cells Few <5 /hpf Urine Bacteria None seen None Seen /hpf Urine Glucose Normal Normal mg/dL Urine Opiates Screen Neg NEGATIVE Urine Fentanyl Screen Neg NEGATIVE Urine Barbiturates Screen Neg NEGATIVE Urine Phencyclidine Screen Neg NEGATIVE Urine Amphetamines Screen Neg NEGATIVE Urine Benzodiazepines Screen Neg NEGATIVE Urine Cocaine Screen Neg NEGATIVE Urine Cannabinoids Screen Neg NEGATIVE Troponin I High Sensitivity 51 *H </=34 ng/L Thyroid Stimulating Hormone (TSH) 0.86 0.55-4.78 uIU/mL White Blood Count 7.0 4.4-10.8 10^3/uL Red Blood Count 4.82 4.0-5.20 10^6/uL Hemoglobin 14.8 12.2-16.2 g/dL Hematocrit 43.9 36.0-46.0 % Mean Corpuscular Volume 91.0 80.0-100.0 fL Mean Corpuscular Hemoglobin 30.6 28.0-32.0 pg Mean Corpuscular Hemoglobin Concent 33.6 32.0-36.0 g/dL Red Cell Distribution Width 13.2 11.8-14.3 % Platelet Count 295 140-450 10^3/uL Mean Platelet Volume 8.3 6.9-10.8 fL Neutrophils (%) (Auto) 66.4 37.0-80.0 % Lymphocytes (%) (Auto) 20.3 10.0-50.0 % Monocytes (%) (Auto) 10.0 0.0-12.0 % Eosinophils (%) (Auto) 2.2 0.0-7.0 % Basophils (%) (Auto) 1.1 0.0-2.0 % Neutrophils # (Auto) 4.6 1.6-8.6 10 ^3/uL Lymphocytes # (Auto) 1.4 0.4-5.4 10 ^3/uL Monocytes # (Auto) 0.7 0-1.3 10 ^3/uL Eosinophils # (Auto) 0.2 0-0.8 10 ^3/uL Basophils # (Auto) 0.1 0-0.2 10 ^3/uL Nucleated Red Blood Cells 0.0 % Sodium Level 141 136-145 mmol/L Potassium Level 4.3 3.5-5.1 mmol/L Chloride Level 105 98-107 mmol/L Carbon Dioxide Level 27 20-31 mmol/L Anion Gap 9 5-15 Blood Urea Nitrogen 12 9-23 mg/dL Creatinine 0.84 0.550-1.02 mg/dL Glomerular Filtration Rate Calc 70 >90 mL/min BUN/Creatinine Ratio 14.3 10.0-20.0 Serum Glucose 136 H 74-106 mg/dL Calcium Level 10.7 H 8.7-10.4 mg/dL Total Bilirubin 1.1 H 0.2-1.0 mg/dL Aspartate Amino Transferase (AST) 30 13-40 U/L Alanine Aminotransferase (ALT) 11 7-40 U/L Alkaline Phosphatase 272 H 46-116 U/L Total Protein 7.5 5.7-8.2 g/dL Albumin 4.5 3.2-4.8 g/dL Assessment Supraventricular tachycardia NSTEMI type II secondary to above History of unspecified atrial fibrillation (on Eliquis and metoprolol) Hyperlipidemia Breast cancer with metastasis Plan/Recommendation We will continue with the following plan/recommendations (Dr. Aguilera): * Echocardiogram reveals EF >55% on 08/17/24 * Stop Cardizem drip * [id number] VASc score: 3 points, HAS-BLED score: 2 points * Therapeutic lovenox while inpatient (patient not taking Elquis per Oncology for pending Port-A-cath placement) * Continue beta-ene * Initiate flecainide * Cardiac surveillance * Monitor and replete electrolytes as needed, keep potassium greater than four and magnesium greater than two Case discussed with . Thank you for allowing us to care for this patient. Please call with any questions or concerns. Critical care time spent: 42 minutes This medical document was created using an electronic medical record system with voice recognition software and computerized dictation system. Although this document has been carefully reviewed, there might still be some phonetic and typographical errors. Occasional wrong-word or ``sound-alike substitutions may have occurred due to the inherent limitations of voice recognition software. These areas are purely typographical due to imperfections of the software programs and do not reflect any compromise in the patient's medical care. Please read the chart carefully and recognize, using context, where these substitutions have occurred. Plan discussed with: Patient Date of Service: Sep 22, 2024 Billing Provider: MARIBEL QUEEN Cardiology Common Codes: [id number] INP/OBS CARE (High) Cardiology Consultation Codes: [id number] CONSULT <45MIN MARIBEL QUEEN Sep 22, 2024 16:47
--- NOTE | 2024-09-22 19:13 | ECG ---
[facility] Test Date: 2024-09-22 Test Time: 08:19:18 Pat Name: ARNAV VIRGEN Department: ED Room: [address] [place] [address] A Gender: F Optometric Technician: TORO : 1940 Requested By: BREANNA CHESTER Order Number: [id number] Reading MD: Shiva Aguilera Measurements Intervals [place] Rate: 169 P: 188 IA: 97 QRS: -37 QRSD: 126 T: 0 QT: 307 QTc: 515 Interpretive Statements Wide-QRS tachycardia, consider junctional tachycardia Right bundle branch block Electronically Signed On 09-23-2024 14:14:20 PST by Shiva Aguilera Please click the below link to view image of tracing.
[2024-09-22 20:00] VITALS: PULSE 163; RESP 15; O2SAT 94
[2024-09-22] MEDS: FLECAINIDE ACETATE 50 MG TAB PO SCH (22:00)
[2024-09-22] MEDS: METOPROLOL SUCCINATE XL 50 MG TAB PO SCH (22:00)
[2024-09-22] MEDS: ENOXAPARIN SOD 80 MG/0.8ML SYRINGE SC SCH (22:00)
[2024-09-22] MEDS ORDERED: ATORVASTATIN 20 MG TAB PO SCH (22:00)
[2024-09-22] MEDS: ATORVASTATIN 20 MG TAB PO SCH (22:00)
[2024-09-23 04:13] LABS: Basophils # (auto) 0.1 10 ^3/uL (0-0.2); Eosinophils # (auto) 0.1 10 ^3/uL (0-0.8); Eosinophils % (auto) 1.7 % (0.0-7.0); Hematocrit 38.6 % (36.0-46.0); Hemoglobin 12.9 g/dL (12.2-16.2); Lymphocytes # (auto) 1.1 10 ^3/uL (0.4-5.4); Lymphocytes % (auto) 19.5 % (10.0-50.0); Mean Corpuscular Hemoglobin 30.2 pg (28.0-32.0); Mean Corpuscular Hgb Conc. 33.4 g/dL (32.0-36.0); Mean Corpuscular Volume 90.3 fL (80.0-100.0); Monocytes # (auto) 0.7 10 ^3/uL (0-1.3); Monocytes % (auto) 11.3 % (0.0-12.0); Neutrophils # (auto) 3.9 10 ^3/uL (1.6-8.6); Neutrophils % (auto) 66.5 % (37.0-80.0); Nucleated Red Blood Cells % 0.2 %; Platelet Count (auto) 215 10^3/uL (140-450); Red Blood Cells 4.28 10^6/uL (4.0-5.20); Red Cell Distribution Width 13.4 % (11.8-14.3); White Blood Cell 5.9 10^3/uL (4.4-10.8)
[2024-09-23 04:27] LABS: Magnesium 1.8 mg/dL (1.6-2.6)
[2024-09-23 04:29] LABS: Alanine Aminotransferase 11 U/L (7-40); Albumin 3.9 g/dL (3.2-4.8); Anion Gap 8 (5-15); Aspartate Aminotransferase 29 U/L (13-40); Calcium 9.9 mg/dL (8.7-10.4); Carbon Dioxide 25 mmol/L (20-31); Potassium 4.4 mmol/L (3.5-5.1); Sodium 140 mmol/L (136-145)
[2024-09-23 04:30] LABS: Total Protein 6.3 g/dL (5.7-8.2)
[2024-09-23 04:55] LABS: Alkaline Phosphatase 229 U/L (46-116); BUN/Creatinine Ratio 9.1 (10.0-20.0); Bilirubin, Total 1.3 mg/dL (0.2-1.0); Blood Urea Nitrogen < 5 mg/dL (9-23); Chloride 107 mmol/L (98-107); Glucose 120 mg/dL (74-106)
[2024-09-23] MEDS: ACETAMINOPHEN 325 MG TAB PO PRN (08:06)
[2024-09-23 08:09] VITALS: PULSE 93; RESP 22; O2SAT 94
[2024-09-23] MEDS: MAGNESIUM SULFATE 1GM/100ML 100 ML IV ONE (09:27)
--- NOTE | 2024-09-23 11:16 | DVHPN2 ---
Consult Progress Note Subjective Other Systems: She remains in normal sinus rhythm on wicker worker. No cardiac events reported overnight. Objective vital signs Vital Sign Date Time Temp Pulse Resp B/P (MAP) Pulse Ox O2 Delivery O2 Flow Rate FiO2 09/23/24 10:30 79 125/60 09/23/24 08:09 22 94 Room Air* 0 21 09/23/24 08:08 98.3 98.3 Total Intake and Output 09/22/24 09/22/24 09/23/24 15:00 23:00 07:00 Intake Total 262.5 ml 600 ml 525 ml Balance 262.5 ml 600 ml 525 ml medications Current Medications Medications Dose Ordered Sig/Hugh Route Start Time Stop Time Status Last Admin Dose Admin Sodium Chloride 1,000 ml @ 75 mls/hr [id number] IV 09/22/24 09:45 09/23/24 01:29 75 MLS/HR Aspirin 81 mg DAILY PO 09/22/24 10:00 09/23/24 10:29 81 MG Acetaminophen 650 mg Q6HP PRN PO 09/22/24 09:45 09/23/24 08:06 650 MG Ondansetron HCl 4 mg Q4HP PRN IV 09/22/24 09:45 Nitroglycerin 0.4 mg Q5MINP PRN SL 09/22/24 09:45 Morphine Sulfate 2 mg Q30M PRN IV 09/22/24 09:45 Atorvastatin Calcium 20 mg HS PO 09/22/24 22:00 09/22/24 22:00 20 MG Cholecalciferol 2,000 unit DAILY PO 09/22/24 12:00 09/23/24 10:37 2,000 UNIT Flecainide Acetate 50 mg Q12HR PO 09/22/24 22:00 09/23/24 10:37 50 MG Metoprolol Succinate 25 mg BID PO 09/22/24 22:00 09/23/24 10:30 25 MG Enoxaparin Sodium 80 mg Q12HR SC 09/22/24 22:00 09/23/24 10:30 80 MG Examination: GENERAL:Normal, LUNGS:Normal, CVS:Normal, NEURO:Normal laboratory and microbiology Laboratory Tests 09/23/24 03:31 Test 09/23/24 03:31 Range/Units Serum Glucose 120 H 74-106 mg/dL Problem List/Assessment/Plan Problem List/Assessment/Plan Supraventricular tachycardia, now normal sinus rhythm NSTEMI type II secondary to above History of unspecified atrial fibrillation (on Eliquis and metoprolol) Hyperlipidemia Breast cancer with metastasis Plan/Recommendation (Dr. Aguilera): * Echocardiogram reveals EF >55% on 08/17/24 * [id number] VASc score: 3 points, HAS-BLED score: 2 points * Therapeutic lovenox while inpatient (patient not taking Elquis per Oncology for pending Port-A-cath placement) * Continue beta-ene * Continue flecainide * Cardiac surveillance * Monitor and replete electrolytes as needed, keep potassium greater than four and magnesium greater than two Patient remains in normal sinus rhythm, with no events of SVT or atrial fibrillation seen on wicker worker overnight. There is no further inpatient cardiac workup indicated at this time. Patient to follow up with a technical communication teacher in the outpatient setting in 1-2 weeks post discharge. Thank you for allowing us to care for this patient. Please call with any questions or concerns. This medical document was created using an electronic medical record system with voice recognition software and computerized dictation system. Although this document has been carefully reviewed, there might still be some phonetic and typographical errors. Occasional wrong-word or ``sound-alike substitutions may have occurred due to the inherent limitations of voice recognition software. These areas are purely typographical due to imperfections of the software programs and do not reflect any compromise in the patient's medical care. Please read the chart carefully and recognize, using context, where these substitutions have occurred. Plan discussed with: Patient, Spouse Date of Service: Sep 23, 2024 Billing Provider: MARIBEL QUEEN Common Visit Codes: [id number] INP/OBS CARE(HIGH) MARIBEL QUEEN Sep 23, 2024 11:16
--- NOTE | 2024-09-23 11:38 | DVHDS2 ---
Discharge Summary Date of Admission Sep 22, 2024 at 09:41 Date of Discharge: Sep 23, 2024 Admitting Diagnosis Atrial fibrillation with rapid ventricular Labs/Diagnostic Data: Laboratory Results Test 09/23/24 03:31 09/22/24 13:50 09/22/24 13:13 09/22/24 10:20 White Blood Count 5.9 10^3/uL (4.4-10.8) Red Blood Count 4.28 10^6/uL (4.0-5.20) Hemoglobin 12.9 g/dL (12.2-16.2) Hematocrit 38.6 % (36.0-46.0) Mean Corpuscular Volume 90.3 fL (80.0-100.0) Mean Corpuscular Hemoglobin 30.2 pg (28.0-32.0) Mean Corpuscular Hemoglobin Concent 33.4 g/dL (32.0-36.0) Red Cell Distribution Width 13.4 % (11.8-14.3) Platelet Count 215 10^3/uL (140-450) Mean Platelet Volume 8.4 fL (6.9-10.8) Neutrophils (%) (Auto) 66.5 % (37.0-80.0) Lymphocytes (%) (Auto) 19.5 % (10.0-50.0) Monocytes (%) (Auto) 11.3 % (0.0-12.0) Eosinophils (%) (Auto) 1.7 % (0.0-7.0) Basophils (%) (Auto) 1.0 % (0.0-2.0) Neutrophils # (Auto) 3.9 10 ^3/uL (1.6-8.6) Lymphocytes # (Auto) 1.1 10 ^3/uL (0.4-5.4) Monocytes # (Auto) 0.7 10 ^3/uL (0-1.3) Eosinophils # (Auto) 0.1 10 ^3/uL (0-0.8) Basophils # (Auto) 0.1 10 ^3/uL (0-0.2) Nucleated Red Blood Cells 0.2 % Sodium Level 140 mmol/L (136-145) Potassium Level 4.4 mmol/L (3.5-5.1) Chloride Level 107 mmol/L (98-107) Carbon Dioxide Level 25 mmol/L (20-31) Anion Gap 8 (5-15) Blood Urea Nitrogen < 5 mg/dL (9-23) Creatinine 0.55 mg/dL (0.550-1.02) Glomerular Filtration Rate Calc 92 mL/min (>90) BUN/Creatinine Ratio 9.1 (10.0-20.0) Serum Glucose 120 mg/dL (74-106) Hemoglobin A1c 5.4 % A1C (<5.7) Calcium Level 9.9 mg/dL (8.7-10.4) Magnesium Level 1.8 mg/dL (1.6-2.6) Total Bilirubin 1.3 mg/dL (0.2-1.0) Aspartate Amino Transferase (AST) 29 U/L (13-40) Alanine Aminotransferase (ALT) 11 U/L (7-40) Alkaline Phosphatase 229 U/L (46-116) Total Protein 6.3 g/dL (5.7-8.2) Albumin 3.9 g/dL (3.2-4.8) Triglycerides Level 100 mg/dL (< 150) Cholesterol Level 132 mg/dL (< 200) LDL Cholesterol 65 mg/dL (< 100) HDL Cholesterol 48 mg/dL (40-59) Urine Color Light-yellow (Yellow) Urine Clarity Clear (Clear) Urine pH 6.0 (5.0-9.0) Urine Specific [place] 1.020 (1.001-1.035) Urine Protein Trace (Negative) Urine Ketones 1+ (Negative) Urine Blood Negative /uL (Negative) Urine Nitrite Negative (Negative) Urine Bilirubin Negative (Negative) Urine Urobilinogen Normal mg/dL (Negative) Urine Leukocyte Esterase Trace /uL (Negative) Urine RBC 4 /hpf (0 - 4) Urine WBC 5 /hpf (0 - 5) Urine Squamous Epithelial Cells Few /hpf (<5) Urine Bacteria None seen /hpf (None Seen) Urine Glucose Normal mg/dL (Normal) Urine Opiates Screen Neg (NEGATIVE) Urine Fentanyl Screen Neg (NEGATIVE) Urine Barbiturates Screen Neg (NEGATIVE) Urine Phencyclidine Screen Neg (NEGATIVE) Urine Amphetamines Screen Neg (NEGATIVE) Urine Benzodiazepines Screen Neg (NEGATIVE) Urine Cocaine Screen Neg (NEGATIVE) Urine Cannabinoids Screen Neg (NEGATIVE) Troponin I High Sensitivity 51 ng/L (</=34) Thyroid Stimulating Hormone (TSH) 0.86 uIU/mL (0.55-4.78) Other Laboratory Tests 09/23/24 03:31 Brief Hx & Hospital Course: History of Present Illness Shaniqua Charles is a 83-year-old female with past medical history of AFib, breast cancer going through radiation been through so far and pending plans for chemo, left mastectomy, and left node removal greater than 18 years ago who presents to the ED today for palpitations since 10:30 p.m. last night. Patient states that there are no triggering or alleviating factors. She states that around 1030pm she was having palpitations then went to bed and slept through it but this morning she felt the palpitations again. She denies any fevers, chills, chest pain, shortness of breath, recent sick contacts, nausea, vomiting, diarrhea, lightheadedness, headaches, and dizziness. Patient reports that she sees Dr. Parker her oncologist. Course of Hospitalization: Cardiology consultation was obtained. Patient was restarted on rate control agents including metoprolol tartrate, flecainide. Reviewing the patient's home medications reveals that the patient was on rate control agents with verapamil and metoprolol tartrate. Patient will be discharged home given her atrial fibrillation has been controlled approximately 24 hours. She will be continued on her home antiarrhythmic agents. Anticoagulation is currently being held for Port-A-Cath placement. Patient was agreeable with discharge plan. All questions answered. Physical examination General: Alert and Oriented x3. No acute distress. Well-nourished. Eyes: EOMI. Anicteric. HENT: Moist mucous membranes. Lungs: Clear to auscultation bilaterally. No accessory muscle use. Cardiovascular: Regular rate and rhythm. No murmur. No JVD. Abdomen: Soft, non-tender and non-distended. No palpable masses. Extremities: No edema. Non-tender. Skin: No rashes or lesions. Warm. Neurologic: No focal neurological deficits. CN II-XII grossly intact, but not individually tested. Psychiatric: Cooperative. Appropriate mood and affect. Total time spent with patient discussing and formulating plan of care: 35 minutes. This medical document was created using an electronic medical record system with [employer] dictation system. Although this document has been carefully reviewed, there may still be some phonetic and typographical errors. These areas are purely typographical due to imperfections of the software programs, and do not reflect any compromise in the patient's medical care. Consults/Reason for consult Cardiology: Atrial fibrillation with rapid ventricular rate Condition at Discharge: Fair Final Diagnosis/Problems List Atrial Fibrillation with Rapid Ventricular rate Secondary Diagnosis: Breast cancer AFib NSTEMI type 2 secondary to demand ischemia from rapid ventricular Discharge Disposition: Home Discharge Instruct/Medications Diet: Cardiac 2g Na,low cholest Activity: No Restrictions, As Tolerated Follow Up/Referral: Follow up with PCP in 1-2 weeks Follow upu with Oncology in 1-2 weeks Medications: Continue home medications 36 Discharge Statement: "Patient was advised to return to the ER or call 911 if any headaches, dizziness, shortness of breath, chest pain, abdominal pain, bleeding, fevers, or worsening of medical condition. Patient was counseled about treatment plan, medications, possible side effects, patientverbalized understanding. All questions were answered to the best of my ability. This discharge took greater then 30 minutes in planning, reviewing documentation, counseling the patient, and discussing with other team members." ASSESSMENT ASSESSMENT Assessment Atrial Fibrillation with Rapid Ventricular rate Date of Service: Sep 23, 2024 Billing Provider: JP WARD NP Common Visit Codes: 71641-CVE/OBS DISCH DAY >30min JP WARD NP Sep 23, 2024 11:38
[2024-09-23 11:54] VITALS: BP 141/73; PULSE 77; RESP 20; TEMP 98; O2SAT 95
== END 2024-09-23 12:10 | disposition home or self-care (01) | DRG 282 ==
LOC: ER 07:08 → OVERFLOW 09:41
DX: I48.20 Chronic atrial fibrillation, unspecified (principal); I21.A1 Myocardial infarction type 2; I47.10 Supraventricular tachycardia, unspecified; E78.5 Hyperlipidemia, unspecified; Z96.651 Presence of right artificial knee joint; Z90.12 Acquired absence of left breast and nipple; C50.912 Malignant neoplasm of unspecified site of left female breast; Z79.01 Long term (current) use of anticoagulants; Z82.49 Family history of ischemic heart disease and other diseases of the circulatory system
CPT/HCPCS: 36415; 71045; 80053; 80061; 80307; 81001; 83036; 83735; 84443; 84484; 85025; 93005; 99291; G0378; J0153

== ENCOUNTER 2025-04-10 07:41 | Outpatient (CLI) | payer OTHER ==
[~2025-04-10 07:41] MED LIST changes: +APIX5TAB PO
[2025-04-10 08:12] LABS: Urine Protein, UAD Negative (Negative)
[2025-04-10 08:29] LABS: Hematocrit 39.5 % (36.0-46.0); Hemoglobin 13.2 g/dL (12.2-16.2); Mean Corpuscular Hemoglobin 31.2 pg (28.0-32.0); Mean Corpuscular Volume 93.6 fL (80.0-100.0); Nucleated Red Blood Cells % 0.2 %
[2025-04-10 08:32] LABS: Alanine Aminotransferase 12 U/L (7-40); Albumin 4.2 g/dL (3.2-4.8); Anion Gap 8 (5-15); Calcium 9.8 mg/dL (8.7-10.4); Carbon Dioxide 29 mmol/L (20-31); Chloride 106 mmol/L (98-107); Cholesterol 138 mg/dL (< 200); Glucose 100 mg/dL (74-106); HDL Cholesterol 52 mg/dL (40-59); Potassium 4.0 mmol/L (3.5-5.1); Sodium 143 mmol/L (136-145); Total Protein 6.4 g/dL (5.7-8.2); Triglycerides 128 mg/dL (< 150)
[2025-04-10 08:34] LABS: Alkaline Phosphatase 142 U/L (46-116); BUN/Creatinine Ratio 9.4 (10.0-20.0); Bilirubin, Total 1.7 mg/dL (0.2-1.0); Blood Urea Nitrogen < 5 mg/dL (9-23)
== END 2025-04-10 17:00 | disposition home or self-care (01) ==
LOC: LAB 07:41
PROVIDERS: ATTEND Internal Medicine
DX: C79.51 Secondary malignant neoplasm of bone (principal); N18.2 Chronic kidney disease, stage 2 (mild); D68.69 Other thrombophilia; R74.8 Abnormal levels of other serum enzymes; R22.9 Localized swelling, mass and lump, unspecified; N63.10 Unspecified lump in the right breast, unspecified quadrant; Z79.899 Other long term (current) drug therapy
CPT/HCPCS: 36415; 80053; 80061; 81001; 83036; 84439; 84443; 85025